=== PATIENT | female | born 1960 | race Caucasian/White ===

== ENCOUNTER 2022-11-05 05:27 | Day surgery (SDC) | payer BC ==
[2022-11-05] MEDS ORDERED: Midazolam 1 MG/ML 2 ML SDV IV ONE ×7 (05:28→06:45)
[2022-11-05] MEDS ORDERED: fentaNYL 100 MCG/2 ML SDV IV ONE ×3 (05:28→06:32)
[2022-11-05] MEDS ORDERED: Dextrose 5%-0.45% NaCl 1,000 ML IV SCH (06:00)
[2022-11-05] MEDS ORDERED: fentaNYL 100 MCG/2 ML SDV ONE (06:12)
[2022-11-05] MEDS ORDERED: Midazolam 1 MG/ML 2 ML SDV ONE (06:12)
[2022-11-05 09:22] VITALS: BP 90/45; PULSE 76
== END 2022-11-05 08:35 | disposition home or self-care (01) ==
LOC: DL.ENDO 05:27
PROVIDERS: ATTEND Internal Medicine Gastroenterology
DX: Z12.11 Encounter for screening for malignant neoplasm of colon (principal); E66.09 Other obesity due to excess calories; E78.5 Hyperlipidemia, unspecified; Z90.710 Acquired absence of both cervix and uterus; Z98.890 Other specified postprocedural states; Z91.048 Other nonmedicinal substance allergy status; Z68.27 Body mass index [BMI] 27.0-27.9, adult
CPT/HCPCS: 45378; J2250; J3010; J7042